=== PATIENT | male | born 1945 | race American Indian/Alaskan Native ===

== ENCOUNTER 2016-09-27 22:33 | Inpatient (IN) | payer MEDICARE ==
[2016-09-27 23:44] LABS: Hemoglobin 15.6 gm/dl (11.8-15.2); Mean Corpuscular HGB Conc 33 % (32-34); Mean Corpuscular Hemoglobin 32 pg (28-32); Mean Corpuscular Volume 95 fl (84-94); Platelet Count 243 K/mm3 (140-440); Red Blood Count 4.95 M/mm3 (3.65-5.03); Red Cell Distribution Width 14.6 % (13.2-15.2); White Blood Count 5.2 K/mm3 (4.5-11.0)
[2016-09-28 00:10] LABS: Alanine Aminotransferase 8 units/L (7-56); Albumin/Globulin Ratio 1.1 %; Alkaline Phosphatase 70 units/L (35-129); Anion Gap 19 mmol/L; Blood Urea Nitrogen 12 mg/dL (9-20); Calcium 8.6 mg/dL (8.4-10.2); Carbon Dioxide 21 mmol/L (22-30); Chloride 106.1 mmol/L (98-107); Glucose 113 mg/dL (75-100); Potassium 3.7 mmol/L (3.6-5.0); Sodium 142 mmol/L (137-145); Total Protein 7.5 g/dL (6.3-8.2)
[2016-09-28] MEDS ORDERED: NACL 0.9% 1000 ML 1,000 ML IV ONE (00:11)
[2016-09-28] MEDS ORDERED: ATIVAN IV ONE (00:20)
[2016-09-28] MEDS ORDERED: ZOFRAN IV ONE (00:25)
[2016-09-28] MEDS ORDERED: MORPHINE IV ONE (00:25)
--- NOTE | 2016-09-28 00:31 | Emergency Department Report ---
HPI - General Chief Complaint: Chest Pain Time Seen by Provider: 09/27/16 22:48 - HPI HPI: Left-sided chest pain, started about 4 hours ago, patient was having a drink at his granddaughter's alliance party when he started having the pain. Patient has a history of CAD with stents placed. Patient recently moved to the area and has not yet seen a PCP or automotive electrician. Patient moved from [place]. Patient was also drinking gin at this alliance party, but states that he drinks often but denies being an alcoholic. Patient stated pain is accompanied by nausea, shortness of breath but no vomiting or diaphoresis. In the ER patient was agitated pointing to his chest, stating he hurts a lot, not cooperating much with history and exam. White count is bedside With this history. ED Past Medical Hx - Past Medical History Previous Medical History?: Yes Additional medical history: hx of nine stents - Surgical History Past Surgical History?: Yes - Family History Family history: hypertension - Social History Smoking Status: Current Every Day Smoker Substance Use Type: Alcohol ED Review of Systems ROS: Stated complaint: AMS Other details as noted in HPI Comment: All other systems reviewed and negative Cardiovascular: chest pain Neurological: confusion Psychiatric: anxiety Physical Exam - Physical Exam Vital Signs: Vital Signs 09/27/16 09/27/16 22:40 23:25 Temperature 98 F Respiratory 18 20 Rate Blood Pressure 161/97 O2 Sat by Pulse 98 98 Oximetry Physical Exam: Gen. In mild distress Head atraumatic normocephalic Eyes PERR LA EOMI Chest regular rate and rhythm normal S1-S2 lungs clear bilaterally Abdomen soft nondistended Back no point tenderness paravertebral tenderness Neuro anxious and agitated Psych normal mood. ED Course Vital Signs 09/27/16 09/27/16 22:40 23:25 Temperature 98 F Respiratory 18 20 Rate Blood Pressure 161/97 O2 Sat by Pulse 98 98 Oximetry ED Medical Decision Making - Lab Data Result diagrams: 09/27/16 23:32 09/27/16 23:32 Critical care attestation.: If time is entered above; I have spent that time in minutes in the direct care of this critically ill patient, excluding procedure time. ED Disposition Clinical Impression: Chest pain Disposition: OP ADMIT IP TO THIS HOSP Is pt being admited?: Yes Does the pt Need Aspirin: Yes Condition: Stable Instructions: Chest Pain (ED) Referrals: PRIMARY CARE, [Primary Care Provider] - 3-5 Days
[2016-09-28 00:47] LABS: Amylase 76 units/L (27-131); Lipase 52 units/L (13-60)
[2016-09-28 00:59] LABS: Urine Drugs of Abuse Note Disclamer
[2016-09-28 01:19] LABS: Bacteria,Urine 1+ /HPF (Negative); Bilirubin,Urine NEG (Negative); Blood,Urine SM (Negative); Ketones,Urine NEG (Negative); Leukocyte Esterase,Urine LG (Negative); Nitrite,Urine POS (Negative); Protein,Urine <15 mg/dL mg/dL (Negative); Urobilinogen,Urine < 2.0 mg/dL (<2.0)
[2016-09-28 01:24] LABS: INR 0.95 (0.87-1.13)
[2016-09-28 01:25] LABS: Partial Thromboplastin Time 29.3 Sec. (24.2-36.6)
[2016-09-28] MEDS ORDERED: ASPIRIN PO SCH (01:49)
--- NOTE | 2016-09-28 02:09 | Cat Scan Report ---
FINAL REPORT PROCEDURE: CT HEAD/BRAIN WO CON TECHNIQUE: Computerized tomography of the head was performed without contrast material. HISTORY: AMS COMPARISON: No prior studies are available for comparison. FINDINGS: Skull and scalp: Normal. Paranasal sinuses: Normal. Ventricles and subarachnoid spaces: Normal. Cerebrum: No evidence of hemorrhage, acute infarction or mass. Minimal atrophy is noted.. Cerebellum and brainstem: No evidence of hemorrhage, acute infarction or mass. Vasculature: Normal. Comments: None. IMPRESSION: There is no evidence of an acute intracranial process
[2016-09-28] MEDS ORDERED: MILK OF MAGNESIA PO PRN (02:41)
[2016-09-28] MEDS ORDERED: MORPHINE IV PRN (02:41)
[2016-09-28] MEDS ORDERED: DULCOLAX PR PRN (02:41)
[2016-09-28] MEDS ORDERED: ZOFRAN IV PRN (02:41)
[2016-09-28] MEDS ORDERED: TYLENOL PO PRN (02:41)
--- NOTE | 2016-09-28 02:41 | History and Physical Report ---
History of Present Illness Date of examination: 09/28/16 History of present illness: 71-year-old man with a history of hypertension, coronary artery disease, prostate cancer, status post 12 stent, last one was done in March emergency room with complaints of chest pain rate pain is on the left anterior chest which she describes as sharp pain, intermittent in nature lasting for 10 minutes, intensity 6/10, no radiation any cannot identify exacerbating or relieving factors. Patient recently relocated to [place], he has not taken his medication 1 month. Admits to nausea, no shortness of breath, diaphoresis or palpitation Review Of Systems: Constitutional: no fever, chills, weight loss Ears, eyes, nose, mouth and throat: no nasal congestion, no nasal discharge, no sinus pressure, blurry vision, diplopia Neck: No neck pain or rigidity. Cardiovascular: No orthopnea, palpitations Respiratory: No shortness of breath, cough Gastrointestinal: abdominal pain, hematochezia Genitourinary : no dysuria, frequency , hematuria Musculoskeletal: no joint swelling or muscle ache Integumentary: no rash, no pruritis Neurological: no parathesias, focal weakness Endocrine: no cold or heat intolerance, no polyuria or polydipsia Hematologic/Lymphatic: no easy bruising, no easy bleeding, no gland swelling Allergic/Immunologic: no urticaria, no angioedema. PAST MEDICAL HISTORY:hypertension, coronary artery disease, prostate cancer PAST SURGICAL HISTORY: None FAMILY HISTORY: Hypertension SOCIAL HISTORY: Social alcohol, no tobacco or drugs Medications and Allergies Allergies Allergy/AdvReac Type Severity Reaction Status Date / Time No Known Allergies Allergy Verified 09/28/16 01:57 Active Meds: Active Medications Aspirin (Aspirin) 325 mg PO QDAY JAVON Last Admin: 09/28/16 02:02 Dose: 325 mg Exam - Physical Exam Narrative exam: Gen. appearance: Patient lying in bed, no apparent distress HEENT: Normocephalic, atraumatic, pupils equally round and reactive to light, extraocular movement intact, and no sclericterus,. No JVD or thyromegaly or nodule,neck supple, no carotid bruit ,mucous membranes moist, no exudate or erythema Heart: S1, S2, regular rate and rhythm Lungs: Clear to auscultation bilaterally, breathing comfortable Abdomen: Positive bowel sounds, nontender, nondistended, no organomegaly Extremity: No edema, cyanosis, clubbing Skin: No rash, nodules, warm, dry Neuro: Oriented 3, cranial nerves II-12 intact, speech is fluent, motor and sensory intact - Constitutional Vitals: Temp Pulse Resp BP Pulse Ox 98 F 20 161/97 98 09/27/16 22:40 09/27/16 23:25 09/27/16 22:40 09/27/16 23:25 Results - Labs CBC & Chem 7: 09/27/16 23:32 09/27/16 23:32 Labs: Abnormal lab results 09/27/16 09/27/16 09/27/16 Range/Units 00:29 23:32 23:32 Hgb 15.6 H (11.8-15.2) gm/dl Hct 47.0 H (35.5-45.6) % MCV 95 H (84-94) fl Carbon Dioxide 21 L (22-30) mmol/L Glucose 113 H (75-100) mg/dL Urine WBC (Auto) 23.0 H (0.0-6.0) /HPF Plasma/Serum Alcohol (0-0.07) gm% 09/27/16 Range/Units 23:32 Hgb (11.8-15.2) gm/dl Hct (35.5-45.6) % MCV (84-94) fl Carbon Dioxide (22-30) mmol/L Glucose (75-100) mg/dL Urine WBC (Auto) (0.0-6.0) /HPF Plasma/Serum Alcohol 0.28 H (0-0.07) gm% - Imaging and Cardiology EKG: image reviewed Chest x-ray: image reviewed Assessment and Plan Assessment Unstable angina Coronary artery disease Hypertension History of prostate cancer Plan Admit to medicine Check cardiac enzymes, consult cardiology Start aspirin, IV hydralazine and appropriate outpatient medications Start DVT prophylaxis
[2016-09-28 03:50] LABS: Creatine Kinase MB 1.8 ng/mL (0.0-4.0)
[2016-09-28 03:53] LABS: Creatine Kinase 142 units/L (55-170)
--- NOTE | 2016-09-28 09:14 | XRay Report ---
AP CHEST : 09/28/16 CLINICAL: Chest pain. COMPARISON:None FINDINGS: Normal heart and pulmonary vessels.The aorta and left pulmonary artery are prominent due to rotation. The lungs are normally expanded and clear. The bones and soft tissues are unremarkable. IMPRESSION: Normal.
[2016-09-28] MEDS ORDERED: LOVENOX SUB-Q SCH (10:00)
[2016-09-28] MEDS: LOVENOX SUB-Q SCH (10:13)
[2016-09-28] MEDS: ASPIRIN PO SCH (10:13)
--- NOTE | 2016-09-28 10:25 | Consultation ---
History of Present Illness Consult date: 09/28/16 Requesting physician: DANIELA COBOS Consult reason: chest pain History of present illness: This is a 71-year-old male who is known to [place] history of coronary disease patient is aware poor historian but states into the had stents for shortness of breath had recurrent chest pain and had a heart catheterization in [place] as per the patient had patent stents patient states chest pain last few days midsternal worse with inspiration and palpation patient also has EtOH abuse nonsmoker pain is sharp in nature no nausea no vomiting no syncopal or palpitations noted. Patient cannot state his shortness of breath with exertion. Patient states compliance with medications Past History Past Medical History: CAD (multiple stents), hypertension, hyperlipidemia Past Surgical History: denies: No surgical history Social history: alcohol abuse. denies: smoking, prescription drug abuse Medications and Allergies Allergies Allergy/AdvReac Type Severity Reaction Status Date / Time No Known Allergies Allergy Verified 09/28/16 01:57 Active Meds: Active Medications Acetaminophen (Tylenol) 650 mg PO Q4H PRN PRN Reason: Pain MILD(1-3)/Fever >100.5/BOWEN Aspirin (Aspirin) 325 mg PO QDAY [facility] Last Admin: 09/28/16 10:13 Dose: 325 mg Bisacodyl (Dulcolax) 10 mg CA QDAY PRN PRN Reason: Constipation unrelieved by MOM Enoxaparin Sodium (Lovenox) 40 mg SUB-Q QDAY@1000 [facility] Last Admin: 09/28/16 10:13 Dose: 40 mg Hydralazine HCl (Apresoline) 5 mg IV Q6HR PRN PRN Reason: Hypertension Magnesium Hydroxide (Milk Of Magnesia) 30 ml PO Q4H PRN PRN Reason: Constipation Morphine Sulfate (Morphine) 2 mg IV Q4H PRN PRN Reason: Pain, Moderate (4-6) Ondansetron HCl (Zofran) 4 mg IV Q8H PRN PRN Reason: N/V unrelieved by Reglan Review of Systems All systems: negative Physical Examination Vital Signs Temp Resp BP Pulse Ox 98 F 18 161/97 98 09/27/16 22:40 09/27/16 22:40 09/27/16 22:40 09/27/16 22:40 General appearance: no acute distress, well-nourished HEENT: Positive: PERRL, Mucus Membranes Moist Neck: Positive: neck supple, trachea midline Cardiac: Positive: Reg Rate and Rhythm, S1/S2. Negative: Audible Murmur Lungs: Positive: clear to auscultation, Normal Breath Sounds Neuro: Positive: Grossly Intact Abdomen: Positive: Soft, Active Bowel Sounds. Negative: Tender, Distended Male genitourinary: Positive: normal Skin: Positive: Clear Incision: Cardiac Cath Site Musculoskeletal: No Pain, Normal Range of Motion Extremities: Present: normal. Absent: edema Results 09/27/16 23:32 09/27/16 23:32 Cardiac Enzymes 09/28/16 Range/Units 03:10 CK-MB (CK-2) 1.8 (0.0-4.0) ng/mL EKG interpretations - Telemetry EKG Rhythm: Sinus Rhythm (normal sinus rhythm with nonspecific ST-T's) Assessment and Plan Chest pain possible GI EtOH abuse Coronary disease Hypertension Hyperlipidemia Recommend PPI and anti-inflammatory is beta blockers aspirin and statin Lexiscan thallium stress test in a.m. along with echocardiogram
[2016-09-28 10:40] LABS: Creatine Kinase MB 1.8 ng/mL (0.0-4.0)
[2016-09-28 10:44] LABS: Creatine Kinase 125 units/L (55-170)
--- NOTE | 2016-09-28 10:50 | Event Note ---
Date: 09/28/16 Patient seen and evaluated medical records reviewed Admitted this morning with atypical chest pain Feels slightly better, Cardiology evaluation noted and appreciated Vital signs reviewed, agree with the current management Possible echocardiogram and stress test tomorrow Patient has history of alcohol abuse, closely monitor for withdrawal symptoms, initiate CIWA protocol as needed Plan of care discussed with the patient and the nurse
[2016-09-28] MEDS: PROTONIX PO SCH (11:50)
[2016-09-28] MEDS: APRESOLINE IV PRN (20:51)
[2016-09-28] MEDS ORDERED: LOPRESSOR PO SCH (22:00)
[2016-09-29] MEDS: APRESOLINE IV PRN (03:56)
[2016-09-29 06:10] LABS: Basophils % (Auto) 1.1 % (0.0-1.8); Eosinophils % (Auto) 1.6 % (0.0-4.3); Hematocrit 46.8 % (35.5-45.6); Hemoglobin 15.9 gm/dl (11.8-15.2); Mean Corpuscular HGB Conc 34 % (32-34); Mean Corpuscular Hemoglobin 32 pg (28-32); Mean Corpuscular Volume 93 fl (84-94); Platelet Count 212 K/mm3 (140-440); Red Blood Count 5.02 M/mm3 (3.65-5.03); Red Cell Distribution Width 14.6 % (13.2-15.2); White Blood Count 5.7 K/mm3 (4.5-11.0)
[2016-09-29 06:34] LABS: Anion Gap 16 mmol/L; Blood Urea Nitrogen 12 mg/dL (9-20); Calcium 8.6 mg/dL (8.4-10.2); Carbon Dioxide 25 mmol/L (22-30); Chloride 102.1 mmol/L (98-107); Cholesterol 163 mg/dL (50-199); Glucose 88 mg/dL (75-100); HDL Cholesterol 56 mg/dL (40-59); LDL Cholesterol,Direct 90 mg/dL (50-130); Potassium 3.7 mmol/L (3.6-5.0); Sodium 139 mmol/L (137-145); Triglycerides 85 mg/dL (2-149)
[2016-09-29] MEDS ORDERED: LEXISCAN IV ONE (08:21)
--- NOTE | 2016-09-29 10:11 | Progress Note ---
Assessment and Plan Chest pain possible GI in nature Coronary disease Hypertension Lipidemia Alcohol abuse Recommend stress tests shows no significant ischemia with normal LV function BP control and add Norvasc 5 mg daily Will hold beta jessica in view of bradycardia into the aspirin and statin PPI and EtOH cessation education discussed with the hospitalist and discussed with patient results Subjective Date of service: 09/29/16 Principal diagnosis: chest pain Interval history: pt denies any chest pain today Objective Vital Signs Temp Pulse Resp BP Pulse Ox 09/29/16 08:10 97.8 F 58 L 18 137/81 96 09/29/16 04:58 97.6 F 62 18 140/80 97 09/29/16 00:13 98.2 F 56 L 18 165/94 94 09/28/16 22:54 56 L 09/28/16 22:00 18 98 09/28/16 21:00 50 L 09/28/16 20:51 48 L 188/104 09/28/16 20:15 98.3 F 49 L 20 189/106 96 09/28/16 18:00 97.6 F 54 L 18 173/94 100 09/28/16 11:30 97.5 F L 54 L 18 145/88 99 - Physical Examination General: No Apparent Distress HEENT: Positive: PERRL, Mucus Membranes Moist Neck: Positive: neck supple, trachea midline Cardiac: Positive: Reg Rate and Rhythm Lungs: Positive: clear to auscultation Neuro: Positive: Grossly Intact Abdomen: Positive: Soft, Active Bowel Sounds. Negative: Tender, Distended Skin: Positive: Clear Incision: Cardiac Cath Site Musculoskeletal: No Pain, Normal Range of Motion Extremities: Present: normal. Absent: edema - Labs and Meds Cardiac Enzymes 09/28/16 Range/Units 09:05 CK-MB (CK-2) 1.8 (0.0-4.0) ng/mL Lipids 09/29/16 Range/Units 05:22 Triglycerides 85 (2-149) mg/dL Cholesterol 163 (50-199) mg/dL HDL Cholesterol 56 (40-59) mg/dL Cholesterol/HDL Ratio 2.91 % CBC 09/29/16 Range/Units 05:22 WBC 5.7 (4.5-11.0) K/mm3 RBC 5.02 (3.65-5.03) M/mm3 Hgb 15.9 H (11.8-15.2) gm/dl Hct 46.8 H (35.5-45.6) % Plt Count 212 (140-440) K/mm3 Lymph # 1.5 (1.2-5.4) K/mm3 Harney # 0.8 (0.0-0.8) K/mm3 Eos # 0.1 (0.0-0.4) K/mm3 Baso # 0.1 (0.0-0.1) K/mm3 Comprehensive Metabolic Panel 09/29/16 Range/Units 05:22 Sodium 139 (137-145) mmol/L Potassium 3.7 (3.6-5.0) mmol/L Chloride 102.1 (98-107) mmol/L Carbon Dioxide 25 (22-30) mmol/L BUN 12 (9-20) mg/dL Creatinine 1.0 (0.8-1.5) mg/dL Glucose 88 (75-100) mg/dL Calcium 8.6 (8.4-10.2) mg/dL - Imaging and Cardiology EKG: image reviewed Echo: report reviewed (normal LV functionand significant regurgitation) - Telemetry EKG Rhythm: Sinus Rhythm
[2016-09-29] MEDS: ASPIRIN PO SCH (11:00)
[2016-09-29] MEDS ORDERED: NORVASC PO SCH (11:00)
[2016-09-29] MEDS: PROTONIX PO SCH (11:00)
[2016-09-29] MEDS: LOVENOX SUB-Q SCH (11:00)
--- NOTE | 2016-09-29 12:53 | Discharge Summary ---
Providers - Providers Date of Admission: 09/28/16 02:41 Date of discharge: 09/29/16 Attending physician: DANIELA COBOS Primary care physician: EMAIL SPECIALIST Hospitalization Reason for admission: left-sided chest pain Condition: Stable Hospital course: Discharge diagnosis; Atypical chest pain noncardiac Chest pain due to gastroesophageal reflux disease coronary artery disease status post PCI Hypertension Dyslipidemia Alcohol use History of prostate cancer Very pleasant 71-year-old male patient with multiple medical problems as mentioned above who was admitted through emergency room with left-sided chest pain Patient was evaluated and admitted to the hospital symptomatically managed with all the cardiac medications, seen by field cane scale clerk, underwent echocardiogram and stress test Reports of which are as mentioned above Patient counseled to quit alcohol intake, verbalized understanding Today he is comfortable now chest pain or shortness of breath, vital signs stable, [id number] evaluation and physical examination done by me prior to discharge is unremarkable Cleared by cardiology for discharge and follow up with them in the office, patient is hemodynamically and clinically stable at the time of discharge Disposition: AL-01 TO HOME OR SELFCARE Time spent for discharge: 31 min Core Measure Documentation - Palliative Care Palliative Care/ Comfort Measures: Not Applicable - Core Measures Any of the following diagnoses?: none Exam - Constitutional Vitals: Temp Pulse Resp BP Pulse Ox 97.8 F 58 L 18 137/81 97 09/29/16 08:10 09/29/16 11:44 09/29/16 08:10 09/29/16 11:44 09/29/16 10:00 General appearance: Present: no acute distress, well-nourished - EENT Eyes: Present: PERRL, EOM intact - Neck Neck: Present: supple, normal ROM - Cardiovascular Rhythm: regular Heart Sounds: Present: S1 & S2 - Extremities Extremities: no ischemia, No edema Peripheral Pulses: within normal limits - Abdominal General gastrointestinal: Present: soft, non-tender, non-distended, normal bowel sounds - Integumentary Integumentary: Present: clear, warm - Musculoskeletal Musculoskeletal: strength equal bilaterally - Psychiatric Psychiatric: appropriate mood/affect, cooperative - Neurologic Neurologic: CNII-XII intact, moves all extremities Plan Activity: no restrictions, fall precautions Diet: regular Special Instructions: smoking cessation Additional Instructions: advised to quit alcohol intake Follow up with: PRIMARY CARE, [Primary Care Provider] - 3-5 Days Prescriptions: amLODIPine [Norvasc] 5 mg PO QDAY #30 tablet Folic Acid [Folvite] 1 mg PO QDAY #30 tablet Pantoprazole [Protonix TAB] 40 mg PO QDAY #30 tablet Thiamine [Vitamin B-1] 100 mg PO QDAY #30 tablet
[2016-09-29 13:56] VITALS: BP 179/87
--- NOTE | 2016-09-29 20:59 | Treadmill Report ---
NUCLEAR PERFUSION STUDY REASON FOR STUDY: Chest pain. IMAGING PROTOCOL: The patient received 10 mCi of Technetium 99m Tetrofosmin for resting image and 28 mCi of Technetium 99m Tetrofosmin for stress imaging. The imaging for the whole procedure was completed 30-90 minutes following the initial injection of Technetium 99m tetrofosmin. The SPECT imaging in the 180 degree arc was performed in the right anterior oblique projection. Computerized reconstruction of the images was performed for analysis. IMAGING RESULTS: Normal cavity size from stress to rest. Normal distribution of radionuclide in the anterior, inferior, septal, and apical regions. Gated SPECT, EF of 55% with no wall motion abnormality. The patient infused Lexiscan with no EKG changes. SUMMARY: 1. Negative Lexiscan EKG. 2. Normal rest and stress myocardial perfusion scan. No significant stress ischemia. No wall motion abnormality. EF 55%. JOB# [id number] VRM/NTS
== END 2016-09-29 15:09 | disposition home or self-care (01) | DRG 392 ==
LOC: ED 22:33 → 4A 09-28 02:41
PROVIDERS: ADMIT Internal Medicine; ATTEND Internal Medicine
DX: K21.9 Gastro-esophageal reflux disease without esophagitis (principal); I25.110 Atherosclerotic heart disease of native coronary artery with unstable angina pectoris; F17.200 Nicotine dependence, unspecified, uncomplicated; E78.5 Hyperlipidemia, unspecified; F10.10 Alcohol abuse, uncomplicated; Z82.49 Family history of ischemic heart disease and other diseases of the circulatory system; Z85.46 Personal history of malignant neoplasm of prostate
CPT/HCPCS: 36415; 70450; 71010; 78452; 80048; 80053; 80061; 80307; 80320; 81001; 82150; 82550; 82553; 83690; 83880; 84484; 85025; 85027; 85610; 85730; 93005; 93010; 93017; 93306; 94760; 96361; 96374; 96375; A9270-GY; A9502; G0480; J0360; J1650; J2060; J2270; J2405; J2785; J7030

== ENCOUNTER 2017-03-29 14:05 | Emergency (ER) | payer MEDICARE ==
[2017-03-29 14:14] VITALS: BP 149/86
--- NOTE | 2017-03-29 17:16 | Emergency Department Report ---
Chief Complaint: Dizziness Stated Complaint: HTN/DIZZINESS Time Seen by Provider: 03/29/17 17:09 - HPI History of Present Illness: Pt is a 71 yo male who presents c/o sensation of falling while bending over and when looking up. Pt noted symptoms for 3 days. Pt denied any facial pain but noted congestion and noted some yellow drainage. Pt states that he has no chest pain or sob but has a cardiac history of 9 stents. - ROS Review of Systems: ros: other systems reviewed and neg except as noted per HPI PE: General : awake, alert in no acute distress Heent: eomi, perrla, mmm; Lungs: clear] Heart: rrr no m/g/r abd: soft, nd, nt +Bs, no peritoneal signs ext: no edema; - Exam Vital Signs: Vital Signs 03/29/17 14:09 Temperature 98.3 F Pulse Rate 68 Respiratory 18 Rate Blood Pressure 149/86 O2 Sat by Pulse 97 Oximetry MSE screening note: Focused history and physical exam performed. Due to findings the following was ordered: ED Disposition for MSE Condition: Stable Referrals: PRIMARY CARE [Primary Care Provider] - 3-5 Days
[2017-03-29] MEDS ORDERED: BABY ASPIRIN PO ONE (17:28)
[2017-03-29 18:05] LABS: Hematocrit 45.8 % (35.5-45.6); Hemoglobin 15.2 gm/dl (11.8-15.2); Mean Corpuscular HGB Conc 33 % (32-34); Mean Corpuscular Hemoglobin 31 pg (28-32); Mean Corpuscular Volume 94 fl (84-94)
[2017-03-29 18:06] LABS: Basophils # (Auto) 0.1 K/mm3 (0.0-0.1); Eosinophils # (Auto) 0.2 K/mm3 (0.0-0.4); Eosinophils % (Auto) 2.8 % (0.0-4.3); Lymphocytes % (Auto) 29.3 % (13.4-35.0); Monocytes # (Auto) 0.7 K/mm3 (0.0-0.8); Platelet Count 235 K/mm3 (140-440)
[2017-03-29 18:23] LABS: Alanine Aminotransferase 8 units/L (7-56); Albumin 3.6 g/dL (3.9-5); BUN/Creatinine Ratio 12; Blood Urea Nitrogen 12 mg/dL (9-20); Calcium 8.7 mg/dL (8.4-10.2); Hemolysis Index 75
--- NOTE | 2017-03-29 18:28 | Cat Scan Report ---
FINAL REPORT EXAM: CT HEAD/BRAIN WO CON HISTORY: dizziness TECHNIQUE: Standard unenhanced CT of the head at 5.0 millimeter axial increments PRIORS: CT head 09/28/2016 FINDINGS: The ventricular system is normal in size and configuration. There is no evidence for parenchymal volume loss. There is no evidence for mass lesion, mass effect, midline shift, acute intracranial hemorrhage, or acute ischemia/ infarction. Visualized paranasal sinuses demonstrates new near complete opacification of the right maxillary sinus and opacification of multiple right ethmoid air cells. There is mucosal thickening in multiple left ethmoid air cells. IMPRESSION: 1. No acute intracranial process noted. No change. 2. New sinusitis of the right maxillary and ethmoid sinuses.
== END 2017-03-29 20:40 | disposition left against medical advice (07) ==
LOC: ED 14:05
DX: R51 Headache (principal); Z53.21 Procedure and treatment not carried out due to patient leaving prior to being seen by health care provider
CPT/HCPCS: 36415; 70450; 80053; 84484; 85025; 93005; 93010